=== PATIENT | female | born 1955 | race Caucasian/White ===

== ENCOUNTER → 2018-03-05 14:51 | Outpatient (CLI) | payer OTHER, SELFPAY ==
--- NOTE | 2018-03-05 | DI.MG.S_ITS ---
BILATERAL DIGITAL SCREENING MAMMOGRAM 3D/2D WITH CAD: 03/05/2018 CLINICAL: Routine screening. Family history of breast cancer. Comparison is made to exams dated: 11/02/2016 mammogram, 06/03/2015 mammogram, and 03/27/2009 mammogram - [facility]. There are scattered fibroglandular elements in both breasts. Current study was also evaluated with a Computer Aided Detection (CAD) system. There is a mole marker on both breasts. No significant masses, calcifications, or other findings are seen in either breast. There has been no significant interval change. IMPRESSION: NEGATIVE There is no mammographic evidence of malignancy. A 1 year screening mammogram is recommended. This exam was interpreted at Station ID: [id number]. NOTE: For mammograms, a report in lay terms will be sent to the patient. Approximately 15% of breast malignancies will not be visualized mammographically. In the management of a palpable breast mass, a negative mammogram must not discourage biopsy of a clinically suspicious lesion. Electronically Signed By: Vimal heard/anuradha:03/07/2018 18:40:05 letter sent: Normal Exam ACR BI-RADS Category 1: Negative [id number]
== END ==
PROVIDERS: Visit Provider Family Medicine
DX: Z12.31 Encounter for screening mammogram for malignant neoplasm of breast (principal); Z80.3 Family history of malignant neoplasm of breast
CPT/HCPCS: 77063; 77067

== ENCOUNTER → 2018-11-06 19:10 | Outpatient (CLI) | payer OTHER, SELFPAY ==
--- NOTE | 2018-11-06 19:15 | DI.MRI.S_ITS ---
PROCEDURE: MR KNEE RT WO CON INDICATIONS: RIGHT KNEE PAIN TECHNIQUE: Noncontrast sagittal PD fast spin echo and T2 fast spin echo with fat saturation, sagittal 3-D FLASH with fat saturation; coronal T1 spin echo and PD fast spin echo with fat saturation, and axial PD fast spin echo with fat saturation through the knee. COMPARISON: None. FINDINGS: Image quality: Excellent. Menisci: The medial meniscus is intact. Linear oblique high T2 signal intensity traverses the anterior horn, body, and posterior horn of the medial meniscus, demonstrating inferior articular surface extension, indicating oblique tearing. Cruciate ligaments: The anterior and posterior cruciate ligaments appear intact. Medial structures: The medial collateral ligament appears intact. There is mild T2 signal elevation surrounding the proximal and mid portions of the medial collateral ligament. Visualized portions of the pes anserinus tendons appear normal. No abnormal bursal fluid. Lateral structures: The lateral collateral ligament, long and short heads of the biceps femoris tendon appear intact. The popliteus tendon appears normal. Iliotibial band appears normal. Anterior structures: The quadriceps and patellar tendons appear intact. Patellar alignment is normal. No femoral trochlear dysplasia or ventral trochlear prominence. No edema in the infrapatellar fat pad. Bones and cartilage: No bone marrow contusions or fractures. There is mild subchondral cyst formation within the central femoral trochlea. There is mild tricompartmental jigna-articular osteophyte formation. Moderate articular cartilage loss overlies the central femoral trochlea. Mild diffuse articular cartilage loss overlies the weightbearing aspects of the medial and lateral femoral condyle, as well as the medial and lateral tibial plateaus. Moderate articular cartilage loss overlies the patellar apex and medial patellar facet articular cartilage fibrillation overlies the lateral patellar facet. Joint space: There is a small knee joint effusion and a trace Lundberg's cyst. Normal appearing synovial plicae are incidentally noted. IMPRESSION: 1. 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 2. Lateral meniscal tear. 3. Small knee joint effusion and trace Lundberg's cyst. 4. Mild MCL strain. Dictated by: Josy Alexander M.D. on 11/07/2018 at 11:55 Approved by: Josy Alexander M.D. on 11/07/2018 at 11:59
== END ==
PROVIDERS: Visit Provider Family Medicine
DX: M25.561 Pain in right knee (principal); M17.11 Unilateral primary osteoarthritis, right knee; S83.281A Other tear of lateral meniscus, current injury, right knee, initial encounter; S83.411A Sprain of medial collateral ligament of right knee, initial encounter; M25.461 Effusion, right knee
CPT/HCPCS: 73721

== ENCOUNTER → 2020-02-10 08:11 | Outpatient (CLI) | payer OTHER, SELFPAY ==
--- NOTE | 2020-02-10 | DI.MG.S_ITS ---
BILATERAL DIGITAL SCREENING MAMMOGRAM 3D/2D WITH CAD: 02/10/2020 CLINICAL: Routine screening. Family history of breast cancer. Comparison is made to exams dated: 03/05/2018 mammogram - [facility], 11/02/2016 mammogram, and 06/03/2015 mammogram - [facility]. There are scattered fibroglandular elements in both breasts. Current study was also evaluated with a Computer Aided Detection (CAD) system. There is an 8 mm round high density focal asymmetry with a microlobulated margin in the left breast at 6 o'clock middle depth. This is more prominent. No other significant masses, calcifications, or other findings are seen in either breast. IMPRESSION: INCOMPLETE: NEEDS ADDITIONAL IMAGING EVALUATION The 8 mm round high density focal asymmetry in the left breast is indeterminate. Additional views with possible ultrasound are recommended. This exam was interpreted at Station ID: [id number]. NOTE: For mammograms, a report in lay terms will be sent to the patient. Approximately 15% of breast malignancies will not be visualized mammographically. In the management of a palpable breast mass, a negative mammogram must not discourage biopsy of a clinically suspicious lesion. Electronically Signed By: Adolph Rene acr/:02/10/2020 09:55:13 letter sent: Additional Imaging Needed ACR BI-RADS Category 0: Incomplete 3340F
== END ==
PROVIDERS: PCP Family Medicine; Referring Provider Family Medicine; Visit Provider Family Medicine
DX: Z12.31 Encounter for screening mammogram for malignant neoplasm of breast (principal); Z80.3 Family history of malignant neoplasm of breast
CPT/HCPCS: 77063; 77067

== ENCOUNTER → 2020-03-17 09:00 | Outpatient (CLI) | payer OTHER, SELFPAY ==
--- NOTE | 2020-03-17 | DI.MG.S_ITS ---
UNILATERAL LEFT DIGITAL DIAGNOSTIC MAMMOGRAM 3D/2D WITH ADDITIONAL VIEWS: 03/17/2020 CLINICAL: Additional evaluation requested from prior study. Comparison is made to exams dated: 02/10/2020 mammogram, 03/05/2018 mammogram - [facility], 11/02/2016 mammogram, 06/03/2015 mammogram, and 03/27/2009 mammogram - [facility]. There are scattered fibroglandular elements in left breast. There is an 8 mm oval focal asymmetry with a circumscribed margin in the left breast at 3 o'clock posterior depth 12 cm from the nipple. This is seen in additional views. This lesion can be seen in prior mammograms dating back to at least 06/03/2015, and has not significantly changed in size. No other significant masses or calcifications are seen in the breast. IMPRESSION: INCOMPLETE: NEEDS ADDITIONAL IMAGING EVALUATION The 8 mm oval focal asymmetry in the left breast resembles an intramammary node and is indeterminate. An ultrasound is recommended. This exam was interpreted at Station ID: [id number]. NOTE: For mammograms, a report in lay terms will be sent to the patient. Approximately 15% of breast malignancies will not be visualized mammographically. In the management of a palpable breast mass, a negative mammogram must not discourage biopsy of a clinically suspicious lesion. SUMMARY: Targeted ultrasound is recommended for further evaluation. However, the patient would not stay to complete ultrasound evaluation on the same day. She will be scheduled for follow-up targeted ultrasound of the left breast. Electronically Signed By: Dar bonilla/anuradha:03/17/2020 13:01:11 letter sent: Additional Imaging Needed ACR BI-RADS Category 0: Incomplete 3340F
== END ==
PROVIDERS: PCP Family Medicine; Referring Provider Family Medicine; Visit Provider Family Medicine
DX: Z12.31 Encounter for screening mammogram for malignant neoplasm of breast (principal)
CPT/HCPCS: 77065; G0279

== ENCOUNTER → 2020-03-19 10:24 | Outpatient (CLI) | payer OTHER, SELFPAY ==
--- NOTE | 2020-03-19 | DI.US.S_ITS ---
ULTRASOUND OF LEFT BREAST: 03/19/2020 CLINICAL: Patient returns today to evaluate a focal asymmetry in the left breast. Comparison is made to exams dated: 03/17/2020 mammogram, 02/10/2020 mammogram, 03/05/2018 mammogram - [facility], 11/02/2016 mammogram, and 06/03/2015 mammogram - [facility]. Real-time and Doppler ultrasound of the left breast were performed. There is no sonographic evidence of malignancy. IMPRESSION: BENIGN There is no sonographic evidence of malignancy. Comparison to 2018 hillary shows no change. Return to annual mammogram screening schedule is recommended. This exam was interpreted at Station ID: [id number]. Electronically Signed By: Adolph Rene acr/:03/19/2020 11:01:32 letter sent: Normal Exam Ultrasound BI-RADS: 2 Benign
== END ==
PROVIDERS: PCP Family Medicine; Referring Provider Family Medicine; Visit Provider Family Medicine
DX: R92.8 Other abnormal and inconclusive findings on diagnostic imaging of breast (principal); N64.89 Other specified disorders of breast
CPT/HCPCS: 76642

== ENCOUNTER → 2021-12-10 10:21 | Outpatient (CLI) | payer MEDICARE, OTHER, SELFPAY ==
[2021-12-10 11:10] LABS: COVID19 -Nasal RAPID Negative (Negative)
== END ==
PROVIDERS: PCP Family Medicine; Visit Provider Surgery
DX: Z20.822 Contact with and (suspected) exposure to COVID-19 (principal); Z01.812 Encounter for preprocedural laboratory examination
CPT/HCPCS: 87635; C9803

== ENCOUNTER 2021-12-13 08:08 | Day surgery (SDC) | payer MEDICARE, OTHER, SELFPAY ==
--- NOTE | 2021-12-13 | PATH_ITS ---
[facility] Accession Number: [id number] . 01 Material submitted: . colon - ASCENDING COLON POLYPS . 01 Diagnosis: Ascending Colon, Polyps, Biopsies: Sessile serrated adenomas. MRV 12/15/2021 1449 Local . 01 Electronically signed: . Vilma Anderson MD, Pathologist NPI- [id number] . 01 Gross description: . ASCENDING COLON POLYPS: Received in formalin are 2 fragment(s) of nieto, soft tissue measuring 1.1 x 1.0 x 0.2 cm to 1.0 x 1.0 x 0.2 cm submitted entirely in 1 cassette(s) /CPE 12/14/2021 0529 Local . 01 Pathologist provided ICD-10: D12.2 . 01 CPT . 621492 Specimen Comment: A courtesy copy of this report has been sent to [phone] Performed at: 01 [facility] [address] [place] [address], [place], [place] [id number] MD Ortiz Terrazas MD Phone: [phone]
--- NOTE | 2021-12-13 08:26 | P.HP_ITS ---
History of Present Illness History of Present Illness Chief complaint: [facility] Narrative: 66-year-old female here for colon cancer screening. there is no family history of colon cancer colon polyps. The patient has had no prior colonoscopy Meds Home Medications and Allergies Home Medications Medication Instructions Recorded Confirmed Type ibuprofen 200 mg capsule (Advil 200 mg PO QDAY ##0 03/20/16 History Liqui-Gel) bupropion HCl 150 mg 24 hr tablet, 100 mg PO 12/13/21 History extended release Allergies Allergy/AdvReac Type Severity Reaction Status Date / Time No Known Allergies Allergy Uncoded 12/13/21 08:42 Exam Narrative Exam Narrative: General: Patient is overweight, not in apparent distress Cardiovascular: Regular rate and rhythm, no murmurs, rubs, or gallops; no evidence of edema; no palpable abdominal aortic aneurysm Gastrointestinal: Normoactive bowel sounds, soft, nontender, nondistended, no rebound tenderness, no hepatosplenomegaly, no evidence of hernia Assessment & Plan Assessment & Plan narrative: 66-year-old female here for colon cancer screening. She is at average risk for colon cancer Regarding the procedure(s), the risks and potential complications, benefits, and alternatives (including not doing the procedure) were discussed with the patient. The risks include but are not limited to bleeding, splenic injury, infection, perforation which may require surgical intervention, missed lesions, and adverse reactions to sedative medicines. After a question and answer period, the patient agreed to proceed with the procedure(s) and gives informed consent. Time Spent With Patient Critical Care time: I spent a total of [] minutes of critical care time on this patient's care today; this time is exclusive of procedural time.
[2021-12-13 08:45] VITALS: BP 116/78; PULSE 58; RESP 17; TEMP 36; O2SAT 99; BMI 27.9
[2021-12-13] MEDS: SODIUM CHLORIDE 0.9% 1,000 ML 70 ML IV (09:01)
[2021-12-13 09:14] VITALS: BMI 27.9
--- NOTE | 2021-12-13 09:18 | PM.OP.COLON ---
Procedure Notes Procedure in detail: Surgeon: Slade Anderson MD Procedure: Colonoscopy with polypectomy Preoperative diagnosis: average risk colon cancer screening Postoperative diagnosis: Ascending colon polyps x 2 status post polypectomy; grade 1 internal hemorrhoids Medications: Monitored anesthesia care Preanesthesia Assessment An H and P was performed/updated and the Px's ASA class is 2. The procedure was discussed in detail with the patient. The potential risks and complications including infection, bleeding, missed lesions, perforation, need for surgery in case of perforation, prolonged hospital stay, and were explained. A brief question and answer period was allotted and once all questions were answered, informed consent was obtained. The patient was brought back to the procedure room and placed on standard monitoring. The patient's vital signs were monitored continuously throughout the entire procedure. Prior to starting, a timeout was performed to confirm the patient's identity, allergies, medications, and procedure. Procedure in detail The patient was placed in left lateral decubitus position and once adequate sedation was obtained a CRISTÓBAL was performed. The digital rectal examination did not reveal any palpable lesions. The tip of the colonoscope was placed in the anal canal and advanced without difficulty all the way to the cecum which was identified by the appendiceal orifice and the ileocecal valve. Careful examination of all betts of the colon was performed with irrigation of any residual stool. In the ascending colon, there was note of 2 sessile polyps measuring 8 mm and 10 mm. The polyps were removed by means of cold snare. Resection and retrieval was complete with minimal bleeding Retroflexion was performed in the rectum which revealed grade 1 internal hemorrhoids The patient tolerated the procedure well and will be brought back to the recovery area to be discharged once criteria are met. The prep was judged to be good and adequate to identify polyps less than 5 mm. The withdrawal time was 15 minutes. Complications There were no complications and estimated blood loss was minimal. Recommendations: Resume previous diet Continue outPx medications Follow up pathology results Repeat colonoscopy in 3 years for surveillance An emergency contact number was given to the patient for any complications related to the procedure
[2021-12-13 09:45] VITALS: BP 95/58; PULSE 64; RESP 16; TEMP 36.7; O2SAT 98
[2021-12-13 09:50] VITALS: BP 89/63; PULSE 62; RESP 18; O2SAT 97
[2021-12-13 09:55] VITALS: BP 101/61; PULSE 57; RESP 12; O2SAT 92
[2021-12-13 10:08] VITALS: BP 92/61; PULSE 56; RESP 12; TEMP 36.7; O2SAT 95
== END 2021-12-13 10:15 | disposition home or self-care (01) ==
PROVIDERS: PCP Family Medicine; Referring Provider Internal Medicine Gastroenterology; Visit Provider Internal Medicine Gastroenterology
PROC: 0DJD8ZZ Inspection of Lower Intestinal Tract, Via Natural or Artificial Opening Endoscopic (ICD-10-PCS; CPT 45378; principal; 2021-12-13 09:30)
DX: Z12.11 Encounter for screening for malignant neoplasm of colon (principal); K64.0 First degree hemorrhoids; D12.2 Benign neoplasm of ascending colon
CPT/HCPCS: 45385; J2704

== ENCOUNTER → 2022-03-31 12:55 | Outpatient (CLI) | payer MEDICARE, SELFPAY ==
--- NOTE | 2022-03-31 12:56 | DI.RAD.S_ITS ---
PROCEDURE: XR DEXA AXIAL SKELETON INDICATIONS: post menopausal COMPARISON: None. FINDINGS: This blank DEXA report has been sent in error by the PACS system. The correct and complete report will be forthcoming in 1-2 days. Thank you for your patience and understanding. Dictated by: Óscar Yoon M.D. on 03/31/2022 at 15:15 Approved by: Óscar Yoon M.D. on 03/31/2022 at 15:15
== END ==
PROVIDERS: PCP Family Medicine; Referring Provider Family Medicine; Visit Provider Family Medicine
DX: Z13.820 Encounter for screening for osteoporosis (principal); Z78.0 Asymptomatic menopausal state; M85.851 Other specified disorders of bone density and structure, right thigh
CPT/HCPCS: 77080

== ENCOUNTER → 2022-11-23 10:25 | Outpatient (CLI) | payer MEDICARE, SELFPAY ==
[2022-11-23 11:01] LABS: Hematocrit 41.1 % (36-46); Hemoglobin 14.1 g/dL (12.0-16.0); Mean Corpuscular HGB Conc 34.3 % (30-36); Mean Corpuscular Hemoglobin 30.8 PG (26-34); Mean Corpuscular Volume 89.8 fL (80-100); Platelet Count 213 X10^3/uL (150-400); Red Blood Cell Count 4.57 X10^6/uL (4.0-5.2); Red Cell Distribution Width 13.2 % (11.6-14.8); White Blood Cell Count 3.7 X10^3/uL (4.5-11.0)
[2022-11-23 11:26] LABS: Alanine Aminotransferase 20 IU/L (<35); Albumin 4.3 g/dL (3.5-5.0); Albumin Globulin Ratio 1.4 (1.0-2.8); Alkaline Phosphatase 65 U/L (38-126); Aspartate Aminotransferase 23 IU/L (14-36); BUN Creatinine Ratio 24.7 (6-22); Bilirubin Total 0.5 mg/dL (0.2-1.3); Blood Urea Nitrogen 19 mg/dL (7-17); Calcium 9.8 mg/dL (8.4-10.2); Carbon Dioxide 27 mmol/L (22-32); Chloride 104 mmol/L (98-107); Cholesterol 271 mg/dL (140-199); Estimated Glomerular Filt Rate > 60 mL/min (>60); Globulin 3.1 g/dL (1.7-4.1); Glucose 104 mg/dL (80-110); HDL Cholesterol 69 mg/dL (40-60); HEMOLYSIS < 15 (0-50); LDL Cholesterol Calculated 176 mg/dL (<100); Potassium 4.3 mmol/L (3.4-5.1); Sodium 137 mmol/L (137-145); Total Protein 7.4 g/dL (6.3-8.2); Triglycerides 131 mg/dL (35-150)
[2022-11-23 11:54] LABS: Hemoglobin A1C% w Est Avg Glu 5.3 % (4.0-6.0)
[2022-11-23 11:57] LABS: TSH w/ Reflex to FT4 1.92 uIU/mL (0.47-4.68)
== END ==
PROVIDERS: PCP Internal Medicine; Referring Provider Internal Medicine; Visit Provider Internal Medicine
DX: E78.2 Mixed hyperlipidemia (principal); R73.01 Impaired fasting glucose; R53.83 Other fatigue
CPT/HCPCS: 36415; 80053; 80061; 83036; 84443; 85027

== ENCOUNTER → 2022-12-20 11:00 | Outpatient (CLI) | payer MEDICARE, SELFPAY ==
--- NOTE | 2022-12-20 11:01 | DI.CT.S_ITS ---
PROCEDURE: CT LUNG LOW DOSE SCREENING INDICATIONS: lung cancer screening TECHNIQUE: Noncontrast 2.0-2.5 mm thick sections acquired from the pulmonary apices to the posterior costophrenic angles. 7 mm thick axial MIP, and 5 mm coronal and sagittal reformats were then acquired. A low radiation dose technique was utilized. COMPARISON: None. FINDINGS: Image quality: Diagnostic, given the low radiation dose technique. Lungs and pleura: Right upper lobe solid, noncalcified pulmonary nodule measuring 2 mm (3/80, 5/38). Right lower lobe solid, noncalcified pulmonary nodule measuring 7 x 7 mm (3/207, 5/38). Multiple scattered subcentimeter calcified granulomas. Linear atelectasis in the middle lobe, lingula and bilateral lower lobes. No pleural effusion or pneumothorax. Mediastinum: Heart size is normal. Trace pericardial effusion, likely physiologic. No mediastinal adenopathy by size criteria. Thoracic aorta and central pulmonary arteries are normal in size. Vertebral artery arises directly from the aortic arch. Esophagus is normal in caliber. No hiatal hernia. Bones and chest wall: No suspicious bony lesions. Mild multilevel degenerative changes of the spine. No vertebral body compression fractures. No axillary or supraclavicular adenopathy by size criteria. Thyroid gland partially visualized and unremarkable. Abdomen: Visualized upper abdomen solid organs and bowel loops demonstrate no acute findings on limited noncontrast images. Left adrenal nodule measuring 2.6 x 2.3 cm with Hounsfield unit of - 28. IMPRESSION: 1. Right lower lobe solid, noncalcified pulmonary nodule measuring 7 x 7 mm. Additional right upper lobe solid, noncalcified pulmonary nodule measuring 2 mm. LUNG-RADS 3; recommend six-month follow-up CT 2. Left adrenal nodule measuring 2.6 x 2.3 cm with Hounsfield unit of -28 likely represents a benign lipid rich adenoma. Attention on follow-up. Dictated by: Milly Damon M.D. on 12/20/2022 at 14:17 Approved by: Milly Damon M.D. on 12/20/2022 at 14:26
== END ==
PROVIDERS: PCP Internal Medicine; Referring Provider Internal Medicine; Visit Provider Internal Medicine
DX: Z12.2 Encounter for screening for malignant neoplasm of respiratory organs (principal); R91.8 Other nonspecific abnormal finding of lung field; Z87.891 Personal history of nicotine dependence; E27.8 Other specified disorders of adrenal gland
CPT/HCPCS: 71271

== ENCOUNTER → 2023-07-12 09:34 | Outpatient (CLI) | payer MEDICARE, SELFPAY ==
--- NOTE | 2023-07-12 09:40 | DI.CT.S_ITS ---
PROCEDURE: CT CHEST WO CON INDICATIONS: lung nodule TECHNIQUE: Noncontrast 5 mm thick sections acquired from the pulmonary apices to the posterior costophrenic angles. 1 mm lung window, 5 mm thick coronal and sagittal and 7 mm axial MIP reformats were then acquired. For radiation dose reduction, the following was used: automated exposure control, adjustment of mA and/or kV according to patient size. COMPARISON: [facility], CT, CT LUNG LOW DOSE SCREENING, 12/20/2022, 11:17. FINDINGS: Image quality: Diagnostic. Lower Neck: No enlarged lymph nodes. Thyroid: No thyroid nodules which require sonographic follow up, per consensus guidelines. Axillae: No enlarged lymph nodes. Chest Wall: Unremarkable. Bones: No suspicious osseous lesion. Lungs and Pleura: No pneumothorax or pleural effusions. No consolidation. Right lung base pulmonary nodule measuring 0.6 cm, (3/213), unchanged. A few pulmonary nodules measuring 0.3 cm or less. Many of these are calcified granulomas. Heart: Heart size is normal. Trace pericardial effusion. Thoracic Vessels: The aorta and pulmonary arteries demonstrate normal size. Mediastinum and Samantha: No enlarged lymph nodes. Esophagus: No wall thickening. No hiatal hernia. Upper Abdomen: Left adrenal nodule measuring 2.2 cm. Measures -24 Hounsfield units. Consistent with a benign adenoma. IMPRESSION: 1. Right lung base pulmonary nodule measuring 0.6 cm is unchanged since December 2022. Lung Rads 2. Recommend follow-up lung cancer screening chest CT in 12 months. 2. No adenopathy. 3. Benign left adrenal adenoma measuring 2.2 cm. Dictated by: Manuel Garcia M.D. on 07/12/2023 at 10:20 Approved by: Manuel Garcia M.D. on 07/12/2023 at 10:32
== END ==
LOC: CT 09:34
PROVIDERS: PCP Internal Medicine; Referring Provider Internal Medicine; Visit Provider Internal Medicine
DX: R91.1 Solitary pulmonary nodule (principal); D35.02 Benign neoplasm of left adrenal gland
CPT/HCPCS: 71250

== ENCOUNTER → 2023-08-17 16:02 | Outpatient (CLI) | payer MEDICARE, SELFPAY ==
[2023-08-17 16:49] LABS: Aspartate Aminotransferase 26 IU/L (14-36); BUN Creatinine Ratio 24.5 (6-22); Blood Urea Nitrogen 26 mg/dL (7-17); Calcium 9.4 mg/dL (8.4-10.2); Carbon Dioxide 28 mmol/L (22-32); Chloride 108 mmol/L (98-107); Cholesterol 269 mg/dL (140-199); Estimated Glomerular Filt Rate 58 mL/min (>60); Glucose 91 mg/dL (80-110); HDL Cholesterol 83 mg/dL (40-60); HEMOLYSIS < 15 (0-50); LDL Cholesterol Calculated 142 mg/dL (<100); Sodium 138 mmol/L (137-145); Triglycerides 220 mg/dL (35-150)
[2023-08-17 17:10] LABS: Hemoglobin A1C% w Est Avg Glu 5.6 % (4.0-6.0)
== END ==
PROVIDERS: PCP Internal Medicine; Referring Provider Internal Medicine; Visit Provider Internal Medicine
DX: R73.01 Impaired fasting glucose (principal); E78.2 Mixed hyperlipidemia
CPT/HCPCS: 36415; 80048; 80061; 83036; 84450

== ENCOUNTER 2023-10-31 13:08 | Emergency (ER) | payer MEDICARE, SELFPAY ==
[2023-10-31 13:12] VITALS: BP 123/76; PULSE 68; RESP 18; TEMP 36.6; O2SAT 97; BMI 29.5
--- NOTE | 2023-10-31 13:48 | DI.RAD.S_ITS ---
PROCEDURE: XR FOOT LT MIN 3V INDICATIONS: left fifth toe pain, ?disloc, snagged barefoot TECHNIQUE: 3 views of the foot were acquired. COMPARISON: None. FINDINGS: Bones: Mildly displaced fracture at the head of the 5th proximal phalanx.. No suspicious bony lesions. Plantar calcaneal enthesophyte. Soft tissues: No tibiotalar joint effusion. Achilles tendon appears normal. IMPRESSION: Mildly displaced fracture at the head of the 5th proximal phalanx. Dictated by: Jackson Sánchez M.D. on 10/31/2023 at 14:27 Approved by: Jackson Sánchez M.D. on 10/31/2023 at 14:28
--- NOTE | 2023-10-31 13:50 | ED.LOWEXIN ---
HPI - Extremity Injury (Lower) General Chief Complaint: Extremity Injury, Lower Stated Complaint: L Foot Injury Time Seen by Provider: 10/31/23 13:42 History of Present Illness HPI Narrative: 68-year-old female was walking barefoot this morning, snag the 5th pinky toe of her left foot on something, complains of pain persisting in that area. Denies pain to the other toes. Did not fall. No head or neck pain. No upper mid or lower back pain. Denies pain to her chest abdomen and pelvis. No pain to the remaining left lower extremity, nor right lower extremity, nor upper extremities. No prior procedures or fractures to left 5th toe. Related Data Previous Rx's Medication Instructions Recorded bupropion HCl 300 mg 24 hr tablet, 300 mg PO DAILY #90 tabs 06/27/23 extended release Allergies Allergy/AdvReac Type Severity Reaction Status Date / Time No Known Drug Allergies Allergy Verified 08/17/23 15:34 Review of Systems Review of Systems Narrative: see HPI Patient History Medical History Pulmonary nodule Wears glasses Obesity (BMI 30.0-34.9) Sensorineural hearing loss, unilateral, left ear, with unrestricted hearing on the contralateral side (~1983) Obstructive sleep apnea syndrome Osteopenia (~2021) Impaired fasting glucose Mixed hyperlipidemia History of tobacco use disorder Seasonal affective disorder Surgical History Anesthesia History of appendectomy History of section H/O right knee surgery Family History Father History of emphysema Mother History of emphysema Sister AIDS Grandmother Brain tumor Grandfather Stroke Social History details: , one son, 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 HEAD: Atraumatic. Normocephalic. EYES: Pupils equal round and reactive. Extraocular motions intact. No scleral icterus. No injection or drainage. ENT: Nose without bleeding, purulent drainage. Throat without erythema, tonsillar hypertrophy or exudate. Airway patent. NECK: Trachea midline. Non tender CARDIOVASCULAR: Regular rate and rhythm without murmurs, gallops, or rubs. RESPIRATORY: Clear to auscultation. Breath sounds equal bilaterally. No wheezes, rales, or rhonchi. GASTROINTESTINAL: Abdomen soft, non-tender, nondistended. EXTREMITIES: Left 5th toe with some tenderness at MCP, some lateral deviation, possible dislocation, no gross step-off, no skin laceration or abrasion changes. Good cap refill, no nailbed injuries obvious. No tenderness to the adjacent 4th toe or remaining toes of the left foot. No tenderness to the midfoot, calcaneus, ankle, foreleg, knee of the affected left lower extremity. BACK: Nontender without deformity or crepitance. No flank tenderness. NEURO: AOx3. Nonfocal neuro exam SKIN: No rash or erythema of visible areas Initial Vital Signs Initial Vital Signs: Vital Signs Temperature 97.8 F 10/31/23 13:12 Pulse Rate 68 10/31/23 13:12 Respiratory Rate 18 10/31/23 13:12 Blood Pressure 123/76 10/31/23 13:12 Pulse Oximetry 97 10/31/23 13:12 Oxygen Delivery Method Room Air 10/31/23 13:12 Course Orders Ordered: ED Orders 10/31/23 13:48 XR foot LT min 3V Stat Vital Signs Vital signs: Vital Signs - 8 hr 10/31/23 13:12 Temperature 97.8 F Pulse Rate 68 Respiratory Rate 18 Blood Pressure 123/76 Pulse Oximetry 97 Oxygen Delivery Method Room Air MDM - Extremity Injury (Lower) Imaging Data Extremity x-ray #1: Radiologist's Impression: [address] [address] XRay Report Signed Patient: Patria Scanlon MR#: [id number] : 1955 Acct:[id number] Age/Sex: 68 / F Date of Service: 10/31/23 Loc: ED Accession Number: [id number] Procedure: XR foot LT min 3V Ordering Provider: Sacha Araya MD PROCEDURE: XR FOOT LT MIN 3V INDICATIONS: left fifth toe pain, ?disloc, snagged barefoot TECHNIQUE: 3 views of the foot were acquired. COMPARISON: None. FINDINGS: Bones: Mildly displaced fracture at the head of the 5th proximal phalanx.. No suspicious bony lesions. Plantar calcaneal enthesophyte. Soft tissues: No tibiotalar joint effusion. Achilles tendon appears normal. IMPRESSION: Mildly displaced fracture at the head of the 5th proximal phalanx. Dictated by: Jackson Sánchez M.D. on 10/31/2023 at 14:27 Approved by: Jackson Sánchez M.D. on 10/31/2023 at 14:28 [facility] Narrative Medical decision making narrative: Left 5th toe injury, x-ray shows mildly displaced fracture at proximal phalanx, closed, no abrasions. Reina-taped/Coban wrapped left 5th toe to the adjacent unaffected asymptomatic 4th toe, placed in cast shoe plantar immobilization. She unfortunately will be traveling to [place] in a couple of weeks, for walking to her. This trip likely needs to be canceled or modified, as this would be quite uncomfortable and also decreased likelihood of good healing results. Consider orthopedic surgery follow up, contact information given for Dr. Crain. Discharged with , local orthopedic surgery described, [id number] pain medications as needed. Return precautions discussed. Discharge Plan Departure Patient Disposition: Home Clinical Impression: Fracture of fifth toe, left, closed Activity Restrictions/Additional Instructions: Left 5th toe snagged while barefoot this morning, pulled laterally, with pain. Left foot x-rays described a mildly displaced fracture at the head of the 5th proximal phalanx of that affected toe. Your toe was reina-taped/wrap to adjacent toe, with application of a rigid cast shoe to decreased motion in that area. Follow up with local orthopedic surgery, contact information given for office of Dr. Crain. It might be useful given your plans for international travel to discuss with Orthopedic surgery, to make sure there is no pinning or interventions. However it sounds like you are having a walking tour in [place], consider changing/modifying your travel plans given your acute fracture in your foot. Take Tylenol and or Motrin as needed for pain control. Follow up with local orthopedic surgery as above, call office later today for close follow up appointment. The orthopedic surgeon should be able to see the images electronically. Return earlier to this/nearest emergency department for any change worsening symptoms or any concerns prior Prescriptions: No Action bupropion HCl 300 mg tablet extended release 24 hr 300 mg PO DAILY Qty: 90 3RF Referrals: Margarito Jordan MD [Primary Care Provider] - Teja Crain MD [Physician] - Stand Alone Forms: Patient Portal/API
[2023-10-31 15:28] VITALS: BP 120/76; PULSE 75; RESP 16; TEMP 36.7; O2SAT 98
--- NOTE | 2023-10-31 15:28 | PC.NURSE ---
Pain to left pinky toe
== END 2023-10-31 15:30 | disposition home or self-care (01) ==
PROVIDERS: Emergency Provider Emergency Medicine; PCP Internal Medicine
DX: S92.512A Displaced fracture of proximal phalanx of left lesser toe(s), initial encounter for closed fracture (principal); W22.8XXA Striking against or struck by other objects, initial encounter
CPT/HCPCS: 73630; 99281; 99283

== ENCOUNTER → 2025-01-01 15:42 | Outpatient (CLI) | payer MEDICARE, SELFPAY ==
--- NOTE | 2025-01-01 15:43 | DI.RAD.S_ITS ---
PROCEDURE: XR SHOULDER LT MIN 2V INDICATIONS: shoulder pain TECHNIQUE: 3 views of the shoulder were acquired. COMPARISON: None. FINDINGS: Bones: No fractures or dislocations. No suspicious bony lesions. Visualized ribs appear intact. Moderate acromioclavicular and at least mild glenohumeral joint degeneration. Soft tissues: No suspicious soft tissue calcifications. IMPRESSION: No acute osseous abnormalities. Degenerative changes of the shoulder. Dictated by: Jackson Sánchez M.D. on 01/01/2025 at 21:58 Approved by: Jackson Sánchez M.D. on 01/01/2025 at 21:59
--- NOTE | 2025-01-01 15:43 | DI.RAD.S_ITS ---
PROCEDURE: XR SHOULDER RT MIN 2V INDICATIONS: shoulder pain TECHNIQUE: 3 views of the shoulder were acquired. COMPARISON: None. FINDINGS: Bones: No fractures or dislocations. No suspicious bony lesions. Visualized ribs appear intact. Mild acromioclavicular and glenohumeral joint degeneration. Soft tissues: No suspicious soft tissue calcifications. IMPRESSION: No acute osseous abnormalities. Degenerative changes of the shoulder. Dictated by: Jackson Sánchez M.D. on 01/01/2025 at 21:59 Approved by: Jackson Sánchez M.D. on 01/01/2025 at 22:00
[2025-01-01 17:52] LABS: Hematocrit 39.9 % (36-46); Hemoglobin 13.6 g/dL (12.0-16.0); Mean Corpuscular HGB Conc 34.0 % (30-36); Mean Corpuscular Hemoglobin 30.8 PG (26-34); Mean Corpuscular Volume 90.6 fL (80-100); Platelet Count 247 X10^3/uL (150-400)
[2025-01-01 17:58] LABS: Hemoglobin A1C% w Est Avg Glu 5.5 % (4.0-6.0)
[2025-01-01 18:19] LABS: Blood Urea Nitrogen 20 mg/dL (7-17); Calcium 9.3 mg/dL (8.4-10.2); Carbon Dioxide 25 mmol/L (22-32); Chloride 103 mmol/L (98-107); Cholesterol 257 mg/dL (140-199); Estimated Glomerular Filt Rate > 60 mL/min (>60); Glucose 83 mg/dL (70-99); HDL Cholesterol 80 mg/dL (40-60); HEMOLYSIS < 15 (0-50); Potassium 4.1 mmol/L (3.4-5.1); Sodium 136 mmol/L (137-145); Triglycerides 218 mg/dL (35-150)
[2025-01-01 18:44] LABS: TSH w/ Reflex to FT4 1.02 uIU/mL (0.47-4.68)
== END ==
PROVIDERS: PCP Internal Medicine; Referring Provider Internal Medicine; Visit Provider Internal Medicine
DX: R73.01 Impaired fasting glucose (principal); E78.2 Mixed hyperlipidemia; M15.0 Primary generalized (osteo)arthritis; R53.83 Other fatigue
CPT/HCPCS: 36415; 73030; 80048; 80061; 83036; 84443; 84450; 85027

== ENCOUNTER → 2025-01-09 15:43 | Outpatient (CLI) | payer MEDICARE, SELFPAY ==
--- NOTE | 2025-01-09 15:44 | DI.CT.S_ITS ---
PROCEDURE: CT LUNG LOW DOSE SCREENING
== END ==
LOC: CT 15:43
PROVIDERS: PCP Internal Medicine; Referring Provider Internal Medicine; Visit Provider Internal Medicine
DX: Z12.2 Encounter for screening for malignant neoplasm of respiratory organs (principal); Z87.891 Personal history of nicotine dependence; J43.2 Centrilobular emphysema
CPT/HCPCS: 71271